=== PATIENT | female | born 1980 | race Caucasian/White ===

== ENCOUNTER 2016-04-28 13:18 | Emergency (ER) | payer OTHER ==
[2016-04-28 14:24] VITALS: BP 119/93; PULSE 88; RESP 16; TEMP 98.8
--- NOTE | 2016-04-28 14:56 | ED ---
General Adult HPI - General Chief complaint: Recheck/Abnormal Lab/Rx Stated complaint: shaky/med withdrawal Time Seen by Provider: 04/28/16 14:31 Source: patient, RN notes reviewed Mode of arrival: ambulatory Limitations: no limitations - History of Present Illness Initial comments: This is a 28-year-old female who presents for medication refill of Ambien. Patient states she doubled up on her dosing as 10 mg was not enough to keep her sleeping at night. Patient states she ran out of her prescription earlier than usual because of this. Patient reports shakiness and a twitching sensation in the neck after she's been off of Ambien for 2 days. Patient states she's been taking Ambien for the last year. Patient states this could be because she has not been sleeping. Patient states she has not followed up with her primary care physician for this. Patient denies any new medications. Patient denies any neck pain. Patient denies any chance of being . Patient denies any recent fever, chills, shortness breath, chest pain, abdominal pain, nausea/ vomiting/diarrhea, back pain, numbness, tingling, hematuria, headache, or visual changes, or any other complaints. - Related Data Home Medications Medication Instructions Recorded Confirmed Buprenorphine HCl/Naloxone HCl 1 film SUBLINGUAL DIRECTED 04/28/16 04/28/16 [Suboxone 8 mg-2 mg Sl Film] Cholecalciferol [Vitamin D3] 1,000 unit PO DAILY 04/28/16 04/28/16 Fluticasone Propionate [Flonase 2 spray EA NOSTRIL DAILY PRN 04/28/16 04/28/16 Allergy Relief] Zolpidem Tartrate [Ambien] 10 mg PO HS 04/28/16 04/28/16 Previous Rx's Medication Instructions Recorded Zolpidem [Ambien] 10 mg PO HS #5 tab 04/28/16 Allergies Allergy/AdvReac Type Severity Reaction Status Date / Time No Known Allergies Allergy Verified 04/28/16 14:24 Review of Systems ROS Statement: Those systems with pertinent positive or pertinent negative responses have been documented in the HPI. ROS Other: All systems not noted in ROS Statement are negative. Past Medical History Additional Past Medical History / Comment(s): sleep disorder History of Any Multi-Drug Resistant Organisms: None Reported Past Surgical History: No Surgical Hx Reported Past Psychological History: Anxiety Smoking Status: Never smoker Past Alcohol Use History: Occasional, Rare Past Drug Use History: None Reported General Exam - General Exam Comments Initial Comments: General: The patient is awake and alert, in no distress, and does not appear acutely ill. Eye: Pupils are equal, round and reactive to light, extra-ocular movements are intact. No nystagmus. There is normal conjunctiva bilaterally. No signs of icterus. Neck: The neck is supple, there is no tenderness or JVD. Cardiovascular: There is a regular rate and rhythm. No murmur, rub or gallop is appreciated. Respiratory: Lungs are clear to auscultation, respirations are non-labored, breath sounds are equal. No wheezes, stridor, rales, or rhonchi. Musculoskeletal: Normal ROM, no tenderness. Strength 5/5. Sensation intact. Radial pulses equal bilaterally 2+. Neurological: A&O x 3. CN II-XII intact, There are no obvious motor or sensory deficits. Coordination appears grossly intact. Speech is normal. Skin: Skin is warm and dry and no rashes or lesions are noted. Psychiatric: Cooperative, appropriate mood & affect, normal judgment. Limitations: no limitations Course Vital Signs 04/28/16 14:21 Temperature 98.8 F Pulse Rate 88 Respiratory 16 Rate Blood Pressure 119/93 O2 Sat by Pulse 99 Oximetry Medical Decision Making - Medical Decision Making This is a well-appearing 28-year-old female presents for medication refill of Ambien. On physical exam patient is neurologically intact and does not appear to be in withdrawal. There is no pain with palpation of the neck. I discussed that patient will receive a prescription for Ambien for a few days that she'll have to follow up with her doctor in regards to this medication. I discussed the patient should not double up on her medication and she needs to follow prescriptions as they are written. I discussed return parameters. Discussed that patient should follow up with PCP in one to 2 days or return to the [facility] for any worsening symptoms or for any further concerns. Patient was receptive to this plan and patient will be discharged home. I discussed this case with attending physician Dr. Lai who agrees the plan as stated above. Disposition Clinical Impression: Medication refill Disposition: HOME SELF-CARE Condition: Good Instructions: Zolpidem (By mouth) Additional Instructions: Please use medication as discussed. Please follow-up with family doctor in the next 2 days of symptoms have not improved. Please return to emergency room if the symptoms increase or worsen or for any other concerns. Prescriptions: Zolpidem [Ambien] 10 mg PO HS #5 tab Referrals: Nonstaff,Physician [Primary Care Provider] - 1-2 days Teresa Ann MD [STAFF PHYSICIAN] - 1-2 days Time of Disposition: 15:02
== END 2016-04-28 15:13 | disposition home or self-care (01) ==
LOC: EC 13:18
DX: Z76.0 Encounter for issue of repeat prescription (principal); G47.9 Sleep disorder, unspecified; Z79.51 Long term (current) use of inhaled steroids; Z79.891 Long term (current) use of opiate analgesic; Z79.899 Other long term (current) drug therapy
CPT/HCPCS: 99283